=== PATIENT | female | born 1975 | race Caucasian/White ===

== ENCOUNTER 2016-10-30 12:11 | Emergency (ER) | payer MEDICARE, MEDICAID ==
[~2016-10-30 12:11] MED LIST: ADVAIR 1001 DISK W/D; ALBUTEROL17 GM; AMITRIPTYLINE; AMITRIPTYLINE H10 MG; AMITRIPTYLINE VG; ANTIVERT25 MG; AUGMENTIN 875-11 TAB PO; BACLOFEN10 M1 PO; BACLOFEN10 MG; BACLOFEN10 MG PO; BENEFIBER PO; BENZOCAINE; BENZOCAINE VG; BOTOX INJECTIONS VG; CEREFOLIN TABLE1 TAB PO; CIPRO500 M2 PO; CIPROFLOXACIN PO; CLONAZEPAM0.5 M2 PO; CLONAZEPAM0.5 MG PO; COL-RITE100 MG; COMPAZINE25 MG/SUPP PR; CORTEF10 MG; CYCLOBENZAPRINE5 M1 PO; CYMBALTA30 MG; CYMBALTA30 MG PO; DHEA; DHEA PO; DIAZEPAM VG; DOC-Q-LACE100 M1 PO; DULCOLAX STOOL100 MG PO; DURAGESIC1 PATCH .; DURAGESIC1 PATCH .7 TOP; EFFEXOR75 MG PO; ELAVIL50 MG; ELMIRON100 MG; ELMIRON100 MG PO; ESTRACE1 M1 PO; ESTRING VG; EXALGO PO; FENTANYL PATCH; FENTANYL1 EAC4 TOP; FENTANYL1 PATCH . TOP; FENTANYL1 PATCH .7 TOP; FENTANYL1 PATCH TOP; FLEXERIL10 MG PO; FLEXERIL5 MG PO; GABAPENTIN; GABAPENTIN VG; GAS-X80 MG; HM FOLIC ACID0.4 MG PO; HYDROCORTISONE10 M1 PO; HYDROCORTISONE10 M2 PO; HYDROCORTISONE10 M3 PO; HYDROCORTISONE5 MG PO; HYDROXYZINE; HYDROXYZINE HCL25 MG; HYDROXYZINE HCL25 MG PO; INDERAL20 MG PO; KEFLEX500 M4 PO; KLONOPIN1 MG PO; LEVAQUIN500 MG PO; LEVOFLOXACIN250 MG PO; LIDOCAINE 5%; LIDOCAINE PATCH; LIDOCREAM5 GM TP; LIDODERM30 EA; MACROBID 100 M100 M1 PO; MIRALAX12 EA PO; MORPHINE SU15 MG/TAB PO; MULTIVITAMIN1 CAP; NEURONTIN300 MG; NEXIUM20 MG PO; NUVIGIL150 MG PO; OMEPRAZOLE20 M2 PO; OSTERA TABLET1 EACH PO; OXYCODONE HCL5 MG; OXYCODONE/APAP PO; OXYCONTIN10 M2 PO; OXYCONTIN10 MG PO; OXYCONTIN20 M1 PO; PERCOCET 5/3251 TAB; PERCOCET 5/3251 TAB PO; PHENERGAN PR; PHENERGAN12.5 MG; PHENERGAN25 M3 RC; PHENERGAN25 MG; PRILOSEC OTC20 MG; PRILOSEC OTC20 MG PO; PRISTIQ50 MG PO; PROPRANOLOL; PROPRANOLOL HCL10 M1 PO; PROPRANOLOL HCL10 MG PO; PROSED/DS TABLE1 TA; RELISTOR12 MG/0.1 SQ; SAVELLA50 MG; SAVELLA50 MG PO; SENNA8.6 M PO; SUBUTEX2 MG; SUP PR; SYNTHROID50 MCG PO; TESTIM; TRAMADOL HCL50 MG PO; TUMS500 MG; TYLENOL500 MG; ULTRAM50 MG PO; UTIRA C PO; VALIUM5 M1 VG; VITAMIN B121000 MCG PO; VITAMIN D-50000 IU/C PO; VITAMIN D250000 UNI1 PO; VITAMIN D50000 UNIT; VIVELLE; VIVELLE-DO1 PATCH.B; ZANAFLEX2 M1 PO; ZITHROMAX250MG Z-PAK PO; ZOFRAN ODT8 MG/TAB PO; ZOFRAN4 MG; ZOFRAN8 MG PO; [UNRECOGNIZED DRUG - OTHER]; [UNRECOGNIZED DRUG - OTHER]; [UNRECOGNIZED DRUG - OTHER]; [UNRECOGNIZED DRUG - OTHER]; [UNRECOGNIZED DRUG - OTHER]; [UNRECOGNIZED DRUG - REMARK]; [UNRECOGNIZED DRUG - REMARK]
[2016-10-30] MEDS ORDERED: MACROBID 100 M100 M1 PO (12:31)
[2016-10-30 13:03] LABS: BASO % 0.2 % (0-2); EOS % 0.5 % (0-7); HCT-HEMATOCRIT 48.5 % (34.0-49.0); HGB-HEMOGLOBIN 16.5 gm/dl (12.0-15.5); IMMATURE GRANULOCYTES ABSOLUTE 0.02 tho/cmm (0-0.03); IMMATURE GRANULOCYTES PERCENT 0.2 % (0-0.3); LYMPH % 13.4 % (20-45); LYMPH ABSOLUTE COUNT 1.1 tho/cmm (0.8-4.5); MCH (MEAN CORPUSCULAR HGB) 31.5 pg (28.0-32.0); MCV (MEAN CELL VOLUME) 92.7 fl (82.0-96.0); MEAN PLATELET VOLUME 8.9 cmc (9.4-12.4); MONO % 9.7 % (0-12); MONOCYTE ABSOLUTE COUNT 0.8 tho/cmm (0.0-1.2); NEUTROPHIL ABSOLUTE COUNT 6.2 tho/cmm (1.6-8.0); NEUTROPHIL-AUTOMATED 6.2 tho/cmm (1.6-8.0); PLATELET COUNT 329 tho/cmm (150-450); RED BLOOD COUNT 5.23 mil/cmm (4.00-5.20); RED CELL DISTRIBUTION WIDTH 12.6 % (12.4-16.4); WHITE BLOOD COUNT 8.2 tho/cmm (4.0-10.0)
[2016-10-30 13:25] LABS: URINE BILIRUBIN NEGATIVE (NEG); URINE BLOOD SMALL (NEG); URINE GLUCOSE (UA) NEGATIVE (NEG); URINE KETONE MODERATE (NEG); URINE LEUKOCYTE ESTERASE NEGATIVE (NEG); URINE NITRITE NEGATIVE (NEG); URINE PROTEIN NEGATIVE (NEG)
[2016-10-30 13:27] LABS: URINE APPEARANCE CLEAR; URINE COLOR YELLOW
[2016-10-30 13:35] LABS: ALB/GLOB RATIO 0.7 (0.8-2.0); ALBUMIN 3.1 g/dl (3.5-5.0); ALKALINE PHOSPHATASE 83 U/L (33-138); ALT/SGPT 20 U/L (12-78); BILIRUBIN,TOTAL 0.5 mg/dl (0-1.5); BLOOD UREA NITROGEN 6 mg/dl (6-24); CALCIUM 8.6 mg/dl (8.5-10.5); CARBON DIOXIDE-VENOUS 21 mmol/L (22-32); CHLORIDE 107 mmol/l (96-110); CREATININE 0.65 mg/dl (0.50-1.10); GLUCOSE 109 mg/dL (70-110); LIPASE 97 U/L (73-393); SODIUM 139 mmol/L (135-145); eGFR VALUE FOR BLACK >90 mL/Min
[2016-10-30 13:37] LABS: ANION GAP 15 mmol/L (0-20); AST/SGOT 20 U/L (10-40); POTASSIUM 3.8 mmol/L (3.7-5.1)
[2016-10-30 13:52] LABS: URINE MUCUS 1+; URINE RBC 0-1 /[HPF] (0-5); URINE WBC 0-2 /[HPF] (0-5)
== END 2016-10-30 16:55 ==
LOC: EDMED 12:11
PROVIDERS: Emergency Medicine
DX: E27.1 Primary adrenocortical insufficiency (principal); Z88.2 Allergy status to sulfonamides; Z88.5 Allergy status to narcotic agent; Z79.899 Other long term (current) drug therapy; F17.200 Nicotine dependence, unspecified, uncomplicated
CPT/HCPCS: J0696; J1170; J1720; J1885; J2405; J7030; P9612